=== PATIENT | male | born 1970 | race Caucasian/White ===

== ENCOUNTER → 2024-02-21 16:53 | Outpatient (REF) | payer OTHER, SELFPAY | LOC: RAD 16:53 | PROVIDERS: ATTENDING PHYSICIAN Physician Assistant Medical | DX: R22.31 Localized swelling, mass and lump, right upper limb (principal) | CPT/HCPCS: 76882 ==

== ENCOUNTER → 2024-06-01 07:18 | Outpatient (REF) | payer OTHER, SELFPAY ==
[2024-06-01 08:18] LABS: % Basophils 0.7 % (0-2); % Eosinophils 2.8 % (0-6); % Immature Granulocytes 0.4 % (0-0.5); % Monocytes 7.9 % (1.7-9.3); % Neutrophils 42.2 % (42.2-75.2); Absolute Eosinophils 0.2 10^3/uL (0-0.7); Absolute Lymphocytes 2.5 10^3/uL (1.2-3.4); Absolute Monocytes 0.4 10^3/uL (0.1-0.6); Absolute Neutrophils 2.3 10^3/uL (1.4-6.5); Hematocrit 46.4 % (39.0-52.0); Hemoglobin 15.3 g/dL (13.0-18.0); Mean Corpuscular Hgb 30.2 pg (27.0-31.0); Mean Corpuscular Volume 91.7 fL (80.0-94.0); Mean Platelet Volume 9.7 fL (7.4-10.4); Nucleated Red Blood Cells % 0 % (-); Platelet Count 246 10^3/uL (130-400); Red Blood Cell Count 5.06 10^6/uL (4.70-6.10); Red Cell Dist. Width 11.8 % (11.5-14.5); White Blood Cell Count 5.4 10^3/uL (4.8-10.8)
[2024-06-01 08:56] LABS: ALT (SGPT) 61 U/L (0-50); AST (SGOT) 42 U/L (17-59); Albumin 4.4 g/dl (3.5-5.0); Alkaline Phosphatase 56 U/L (38-126); Blood Urea Nitrogen 13 mg/dl (9-20); Calcium 8.9 mg/dl (8.4-10.2); Carbon Dioxide 28 mmol/L (22-30); Chloride 102 mmol/L (98-107); Glucose 117 mg/dl (70-99); HDL Cholesterol 44 mg/dl; LDL Cholesterol, Calculated 68 mg/dl; Potassium 4.9 mmol/L (3.5-5.1); Sodium 142 mmol/L (135-145); Total Bilirubin 0.8 mg/dl (0.2-1.3); Total Cholesterol 145 mg/dl (50-199); Triglyceride 166 mg/dl (10-149); Very Low Density Lipoprotein 33 mg/dl (0-30); eGFR > 60.00
[2024-06-02 10:21] LABS: Glycohemoglobin (HgbA1c) 5.8 % (4.0-5.6)
== END ==
LOC: REG 07:18
PROVIDERS: ATTENDING PHYSICIAN Nurse Practitioner
DX: Z00.00 Encounter for general adult medical examination without abnormal findings (principal); R73.01 Impaired fasting glucose
CPT/HCPCS: 36415; 80053; 80061; 83036; 85025

== ENCOUNTER 2024-11-19 05:34 | Emergency (ER) | payer OTHER, SELFPAY ==
[2024-11-19 05:36] VITALS: BP 142/92
--- NOTE | 2024-11-19 05:53 | ED.GENMED ---
History of Present Illness
<Daina Root PA-C - Last Filed: 11/19/24 06:23>
General
Chief Complaint: Abdominal Pain
Source: patient
Exam Limitations: none
Time Seen by Provider: 11/19/24 05:43
Nursing documentation reviewed up to this point in time: agreed with
History of Present Illness
History of Present Illness:
54-year-old male with a past medical history of high liver disease presents emergency department today with concerns of abdominal pain for the past 2 days. Patient reports that he first noticed this pain in the morning when he was sitting at home.
The pain is not related to eating. He has been eating and drinking normally. He has no nausea or vomiting associated with this. Patient has had similar pain in the past that has resolved on its own but this time it is not going away. The pain is
in the left lower quadrant and does not radiate to the flank or into the groin. Has no urinary symptoms, no hematuria. He has no history of prior abdominal surgeries. He has not had any sick contacts. He has no diarrhea, dark tarry stools, or
rectal bleeding.
Past History
<Daina Root PA-C - Last Filed: 11/19/24 06:23>
Past History
ED Past Medical History: Negative HTN, Hypercholesterolemia or IDDM
ED Past Surgical History: Other (Oral surgery, pilonidal cyst)
Social History
Tobacco: Non-smoker
Alcohol: None
Drug: None
Personal:
Living: with family
Family History
Family History: Other (Father with valvular disease)
Review of Systems
<Daina Root PA-C - Last Filed: 11/19/24 06:23>
Review of Systems
All Other Systems: ROS reviewed and negative except as documented in HPI and ROS
Phy Exam
<Daina Root PA-C - Last Filed: 11/19/24 06:23>
Physical Exam
Physical Exam:
General: Patient is well appearing and in no acute distress; non-toxic
Skin: Warm and dry, no rashes or lesions
Head: Normocephalic, atraumatic
Eyes: Sclera non-icteric. EOMs intact.
Cardiac: Regular rate and rhythm, no murmurs
Peripheral Vascular: No lower extremity swelling or edema
Pulm: Normal respiratory effort, no wheezes, rales, or rhonchi
Abdomen: Abdomen is soft but there is some palpable tenderness in the left lower quadrant, no rebound tenderness, no guarding
Neuro: CN II-XII intact, no focal neurologic deficits.
Psychiatric: Appropriate mood and affect.
Course
Ironlt;Daina Root PA-C - Last Filed: 11/19/24 06:23>
Orders/Labs/Results
Orders:
Orders
11/19/24 05:52
CT Abd/pelvis W Iv Cont Urgent
Comment:
Reason For Exam: LLQ pain
Urinalysis Reflex To Culture Urgent
Date Specimen was Collected: 11/19/24
Time Specimen was Collected: 08:00
11/19/24 06:47
Complete Blood Count/With Diff Urgent
Comprehensive Metabolic Panel Urgent
Lipase Urgent
Abnormal Lab Results
11/19/24
06:47
RBC 4.58 L 10^6/uL
(4.70-6.10)
Chloride 109 H mmol/L
(98-107)
Glucose 123 H mg/dl
(70-99)
Total Protein 6.1 L g/dl
(6.3-8.2)
11/19/24 06:47
11/19/24 06:47
Vital Signs
Initial and Last Documented VS:
Initial Vital Signs
Temp Pulse Resp BP Pulse Ox
98.2 F 96 20 142/92 96
11/19/24 05:36 11/19/24 05:36 11/19/24 05:36 11/19/24 05:36 11/19/24 05:36
Last Documented Vital Signs
Temp Pulse Resp BP Pulse Ox
98.2 F 96 20 136/82 96
11/19/24 05:36 11/19/24 05:36 11/19/24 05:36 11/19/24 07:05 11/19/24 07:45
<Paul eMjia PA-C - Last Filed: 11/19/24 09:40>
Orders/Labs/Results
Orders:
Orders
11/19/24 05:52
CT Abd/pelvis W Iv Cont Urgent
Comment:
Reason For Exam: LLQ pain
Urinalysis Reflex To Culture Urgent
Date Specimen was Collected: 11/19/24
Time Specimen was Collected: 08:00
11/19/24 06:47
Complete Blood Count/With Diff Urgent
Comprehensive Metabolic Panel Urgent
Lipase Urgent
Abnormal Lab Results
11/19/24
06:47
RBC 4.58 L 10^6/uL
(4.70-6.10)
Chloride 109 H mmol/L
(98-107)
Glucose 123 H mg/dl
(70-99)
Total Protein 6.1 L g/dl
(6.3-8.2)
11/19/24 06:47
11/19/24 06:47
Vital Signs
Initial and Last Documented VS:
Initial Vital Signs
Temp Pulse Resp BP Pulse Ox
98.2 F 96 20 142/92 96
11/19/24 05:36 11/19/24 05:36 11/19/24 05:36 11/19/24 05:36 11/19/24 05:36
Last Documented Vital Signs
Temp Pulse Resp BP Pulse Ox
98.2 F 96 20 136/82 96
11/19/24 05:36 11/19/24 05:36 11/19/24 05:36 11/19/24 07:05 11/19/24 07:45
<Daina Root PA-C - Last Filed: 11/19/24 06:23>
MDM/Problems Addressed
Differential Diagnosis Includes:
ddx include diverticulitis, constipation, colitis, nephrolithiasis, gastroenteritis
MDM/Problems Addressed:
54-year-old male with a past medical history of high liver disease presents emergency department today with concerns of abdominal pain for the past 2 days. Patient reports that he first noticed this pain in the morning when he was sitting at home.
He feels pain in the left lower abdominal quadrant.
On physical exam he is well-appearing in no acute distress vitals are stable he is afebrile, but he does have reproducible palpable tenderness in the abdomen. Will give toradol. Will obtain CT scan of the abdomen and pelvis.
6:20 AM--Case signed out to Micheal SAEZ
<Daina Root PA-C - Last Filed: 11/19/24 06:23>
*Pulse Oximetry
Patient hypoxic: no
*Critical Care Note
Total Time (30-74mins, 75-104mins- exclusive of procedures): Not Applicable
Data Reviewed
Review of Other/Old Records Reveals: Records (Reviewed ER physician documentation from 07/31/2020, patient seen for palpitations, had some PVCs but otherwise unremarkable workup) and Discharge Summary (no prior discharge summaries in [facility] to
review, review colonoscopy from 06/03/2019 had polyp removed)
Source: patient and records
<Paul Mejia PA-C - Last Filed: 11/19/24 09:40>
Update Note
Update Note:
0700: Assumed care of patient from Daina Root PA-C at shift change at 0700. Patient presenting with left-sided abdominal pain, no history of similar. No urinary symptoms, fever, or chills. No known history of diverticula. Awaiting labs and
imaging
0855: CT reveals epiploic appendagitis. Natural progression of symptoms discussed with the patient. No further management needed at this point
ED Attending Note
<Daina Root PA-C - Last Filed: 11/19/24 06:23>
-
Portions of this chart may have been created with voice recognition software.� Occasional wrong word or��sound alike� substitutions may have occurred due to the inherent limitations of voice recognition software.
Discharge Plan
Departure
Patient Disposition: Home (Routine Discharge)
Date of Disposition: 11/19/24
Time of Disposition: 08:56
Patient with high blood pressure during this ER visit?: No
Discharge Problem:
Epiploic appendagitis
Instructions: Abdominal Pain
Prescriptions:
No Action
omeprazole magnesium [Prilosec OTC] 20 MG tablet,delayed release (DR/EC)
20 mg PO DAILY Qty: 20 0RF
Referrals:
Lisseth Hernandez PA-C [Family Provider] -
Activity Restrictions/Additional Instructions:
This condition is characterized by ischemia, or lack of blood flow, to small pocket of fat on the intestines. This condition will cause pain but no other symptoms, typically will resolve within a few days on its own. You may take anti-inflammatory
medication
Interventions
Interventions:
*Risk Screen - Suicide Last Done: 11/19/24 05:36
*General Assessment Last Done: 11/19/24 06:32
*Neglect/Abuse Screening Last Done: 11/19/24 05:36
*ED- Fall Risk Assessment Last Done: 11/19/24 06:32
*ED COVID-19 Vaccine History Last Done: 11/19/24 06:32
*Nursing Disposition Last Done: 11/19/24 09:09
ED-Zfqqwn-Fiaiklwvng Assessment Last Done: 11/19/24 06:32
Discharge Date and Time
Discharge Date/Time: 11/19/24 09:09
Print Language: SETSWANA
[2024-11-19 06:56] LABS: % Basophils 0.6 % (0-2); % Eosinophils 2.1 % (0-6); % Immature Granulocytes 0.4 % (0-0.5); % Lymphocytes 32.2 % (20.5-51.1); % Monocytes 9.1 % (1.7-9.3); % Neutrophils 55.6 % (42.2-75.2); Absolute Eosinophils 0.2 10^3/uL (0-0.7); Absolute Lymphocytes 2.3 10^3/uL (1.2-3.4); Absolute Monocytes 0.6 10^3/uL (0.1-0.6); Absolute Neutrophils 3.9 10^3/uL (1.4-6.5); Hematocrit 39.8 % (39.0-52.0); Hemoglobin 14.2 g/dL (13.0-18.0); Mean Corp Hgb Conc. 35.7 g/dL (33.0-37.0); Mean Corpuscular Volume 86.9 fL (80.0-94.0); Mean Platelet Volume 9.6 fL (7.4-10.4); Nucleated Red Blood Cells % 0 % (-); Platelet Count 192 10^3/uL (130-400); Red Blood Cell Count 4.58 10^6/uL (4.70-6.10); White Blood Cell Count 7.1 10^3/uL (4.8-10.8)
[2024-11-19 07:02] VITALS: BMI 32.4
[2024-11-19 07:05] VITALS: BP 136/82
[2024-11-19 07:08] LABS: ALT (SGPT) 33 U/L (0-50); AST (SGOT) 24 U/L (17-59); Albumin 3.6 g/dl (3.5-5.0); Alkaline Phosphatase 49 U/L (38-126); Blood Urea Nitrogen 17 mg/dl (9-20); Calcium 8.7 mg/dl (8.4-10.2); Carbon Dioxide 25 mmol/L (22-30); Chloride 109 mmol/L (98-107); Estimated Creatinine Clearance > 125 ml/min; Glucose 123 mg/dl (70-99); Lipase 168 U/L (23-300); Potassium 3.9 mmol/L (3.5-5.1); Sodium 142 mmol/L (135-145); Total Bilirubin 0.6 mg/dl (0.2-1.3); Total Protein 6.1 g/dl (6.3-8.2); eGFR > 60.00
== END 2024-11-19 09:09 | disposition home or self-care (01) ==
LOC: EMR 05:34
PROVIDERS: Physician Assistant; EMERGENCY PHYSICIAN Emergency Medicine; FAMILY PHYSICIAN Physician Assistant Medical
DX: K63.89 Other specified diseases of intestine (principal); R10.32 Left lower quadrant pain; K76.0 Fatty (change of) liver, not elsewhere classified
CPT/HCPCS: 99284; 74177; 80053; 83690; 85025; Q9967